=== PATIENT | male | born 1965 | race Two or more races ===

== ENCOUNTER 2024-11-21 18:56 | Emergency (ER) | payer MEDICAID, OTHER ==
[~2024-11-21] VITALS: Ht 167.6 cm; Wt 113.6 kg
--- NOTE | 2024-11-21 19:31 | ED.PDOC ---
HPI (NEURO) HPI Comments This is a 59-year-old homeless male with past medical history of CVA (8 years back, with no residual deficits), hypertension and dyslipidemia brought in by ambulance due to dizziness. Per patient, he felt dizziness while he was walking, which lasted for 1 minutes, then he sat for 10 minutes, and again got dizzy which prompted this visit. He also reports of nausea, blurry vision, headache, generalized weakness and abdominal pain. He denies shortness of breaths, chest pain, or any motor/sensory deficits. He reports of previous using methamphetamine, marijuana and smoking cigarettes. Chief Complaint: General Weakness Time Seen by MD: 19:00 Mode of Arrival: EMS Past Medical History Past Medical History (Other): CVA, hypertension and dyslipidemia Physical Exam General Appearance: No Apparent Distress, Normal HEENT: Normal ENT Inspection, Pharynx Normal, TMs Normal Neck: Full Range of Motion, Non-Tender, Normal, Normal Inspection Respiratory: Chest Non-Tender, Lungs Clear, No Accessory Muscle Use, No Respiratory Distress, Normal Breath Sounds Cardiovascular: No Edema, No JVD, No Murmur, No Gallop, Normal Peripheral Pulses, Regular Rate/Rhythm Breast Exam: Deferred Gastrointestinal: No Organomegaly, Non Tender, No Pulsatile Mass, Normal Bowel Sounds, Soft Genitalia: Deferred Pelvic: Deferred Rectal: Deferred Extremities: No calf tenderness, Normal capillary refill, Normal inspection, Normal range of motion, Non-tender, No pedal edema Neurologic: Alert, brand sales manager II-XII nml as Tested, No Motor Deficits, Normal Affect, Normal Mood, No Sensory Deficits Cerebellar Function: Normal Reflexes: Normal Skin: Dry, Normal Color, Warm Lymphatic: No Adenopathy Was a procedure done? Was a procedure done?: No Differential Diagnosis (SZ) Seizure: CVA/TIA CVA: Drug Overdose X-Ray, Labs, Meds, VS Vital Signs Date Time Temp Pulse Resp B/P (MAP) Pulse Ox O2 Delivery O2 Flow Rate FiO2 11/22/24 00:36 97.7 74 14 147/81 (103) 99 97.7 11/21/24 19:04 98.0 98 18 118/74 98 98.0 Lab Test 11/21/24 19:25 Range/Units White Blood Count 6.2 4.4-10.8 10^3/uL Red Blood Count 4.23 L 4.5-5.90 10^6/uL Hemoglobin 13.3 L 13.5-17.5 g/dL Hematocrit 38.7 L 41.0-53.0 % Mean Corpuscular Volume 91.4 80.0-100.0 fL Mean Corpuscular Hemoglobin 31.5 28.0-32.0 pg Mean Corpuscular Hemoglobin Concent 34.5 32.0-36.0 g/dL Red Cell Distribution Width 16.0 H 11.8-14.3 % Platelet Count 230 140-450 10^3/uL Mean Platelet Volume 7.2 6.9-10.8 fL Neutrophils (%) (Auto) 69.0 37.0-80.0 % Lymphocytes (%) (Auto) 15.8 10.0-50.0 % Monocytes (%) (Auto) 8.6 0.0-12.0 % Eosinophils (%) (Auto) 5.6 0.0-7.0 % Basophils (%) (Auto) 1.0 0.0-2.0 % Neutrophils # (Auto) 4.3 1.6-8.6 10 ^3/uL Lymphocytes # (Auto) 1.0 0.4-5.4 10 ^3/uL Monocytes # (Auto) 0.5 0-1.3 10 ^3/uL Eosinophils # (Auto) 0.3 0-0.8 10 ^3/uL Basophils # (Auto) 0.1 0-0.2 10 ^3/uL Nucleated Red Blood Cells 0.0 % D-Dimer, Quantitative 1.33 H 0.0-0.49 mg/L FEU Sodium Level 140 136-145 mmol/L Potassium Level 5.0 3.5-5.1 mmol/L Chloride Level 112 H 98-107 mmol/L Carbon Dioxide Level 17 L 20-31 mmol/L Anion Gap 11 5-15 Blood Urea Nitrogen 29 H 9-23 mg/dL Creatinine 1.93 H 0.700-1.30 mg/dL Glomerular Filtration Rate Calc 39 >90 mL/min BUN/Creatinine Ratio 15.0 10.0-20.0 Serum Glucose 107 H 74-106 mg/dL Calcium Level 8.5 L 8.7-10.4 mg/dL Total Bilirubin 0.7 0.2-1.0 mg/dL Aspartate Amino Transferase (AST) 20 13-40 U/L Alanine Aminotransferase (ALT) 16 7-40 U/L Alkaline Phosphatase 126 H 46-116 U/L Troponin I High Sensitivity 7 </=54 ng/L Total Protein 7.4 5.7-8.2 g/dL Albumin 3.9 3.2-4.8 g/dL Plasma/Serum Blood Alcohol 15.8 H <10 mg/dL Time of 1ST Reevaluation: 22:46 Reevaluation 1ST: Unchanged Patient Education/Counseling: Diagnosis, Treatment, Prognosis, Need For Follow Up Family Education/Counseling: No Family Present Comments Patient was brought by EMS due to presyncope, dizziness and blurry vision Patient was vitally within normal limits. Head CT scan showed, showed subacute finding, spoken with the radiologist, recommended follow up with CT scan. Patient was given IV normal saline, ondansetron, atorvastatin, aspirin CBC and CMP within normal limits Chest x-ray and EKG ordered Patient will be admitted in hospital for further management. And possible expert opinion Departure 1 Departure Time of Disposition: 22:47 Impression: Primary Impression: Recurrent strokes Additional Impression: Pre-syncope Disposition: 09 ADMITTED INPATIENT Admit to: Tele Condition: Guarded Critical Care Note Critical Care Time?: No Stability Stability form required: No Heart Score Heart Score: Heart Score Response (Comments) Value History N/A 0 EKG N/A 0 Age N/A 0 Risk Factors N/A 0 Troponin N/A 0 Total 0 AIDA SRIVASTAVA Nov 21, 2024 19:31
[2024-11-21 19:47] LABS: Hematocrit 38.7 % (41.0-53.0); Hemoglobin 13.3 g/dL (13.5-17.5); Mean Corpuscular Hemoglobin 31.5 pg (28.0-32.0); Mean Corpuscular Volume 91.4 fL (80.0-100.0); Nucleated Red Blood Cells % 0.0 %
[2024-11-21 19:57] LABS: Alanine Aminotransferase 16 U/L (7-40); Albumin 3.9 g/dL (3.2-4.8); Anion Gap 11 (5-15); BUN/Creatinine Ratio 15.0 (10.0-20.0); Bilirubin, Total 0.7 mg/dL (0.2-1.0); Potassium 5.0 mmol/L (3.5-5.1); Sodium 140 mmol/L (136-145); Total Protein 7.4 g/dL (5.7-8.2)
[2024-11-21 20:01] LABS: Alkaline Phosphatase 126 U/L (46-116); Blood Urea Nitrogen 29 mg/dL (9-23); Calcium 8.5 mg/dL (8.7-10.4); Carbon Dioxide 17 mmol/L (20-31); Chloride 112 mmol/L (98-107); Glucose 107 mg/dL (74-106)
--- NOTE | 2024-11-21 20:01 | DVH ---
EXAM: CT HEAD WITHOUT CONTRAST INDICATION: pre-syncope TECHNIQUE: CT of the head without intravenous contrast. Radiation Dose Information: CT Dose: CTDI volume is 54.2 mGy. Dose-length product is 868.93 mGy*cm The dose indicators for CT are the volume Computed Tomography (CT) Dose Index (CTDIvol) and the Dose Length Product (DLP), and are measured in units of mGy and mGy-cm, respectively. These indicators are not patient dose, but values generated from the CT scanner acquisition factors. The report includes radiation exposure data for exposures received during this examination. COMPARISON: None FINDINGS: There is no evidence of acute intracranial hemorrhage, extra-axial collection, mass effect, midline s hift, herniation or hydrocephalus. Area decreased attenuation deep white matter right posterior parietal lobe. There are no prior studie s for comparison can not exclude subacute infarct. Audible and ridge images 29- 35 series 2. The ventricles, sulci and cisterns are age appropriate. The pool-white differentiation is intact. Patchy periventricular and subcortical white matter hypoattenuation is nonspecific but may be related to small vessel ischemic disease. The visualized paranasal sinuses and mastoid air cells are clear. The surrounding soft tissues and osseous structures are unremarkable. IMPRESSION: 1. Area decreased attenuation deep white matter right posterior parietal lobe. 2. There are no prior studies for comparison can not exclude subacute infarct. Increased tissue densi ty in the right in the region of the basal ganglion and above the insula may represent hemorrhage con language path follow-up study. Series 2 images 29- 34 3. MRI brain with diffusion-weighted imaging can be obtained for further evaluation. CRITICAL FINDINGS Critical Result: POSSIBLE SUBACUTE INFARCT RIGHT POSTERIOR PARIETAL LOBE WITH QUESTIONABLE ACUTE HEMO RRHAGE AROUND THE POSTERIOR HORN OF THE RIGHT LATERAL VENTRICLE RECOMMEND FOLLOW-UP. (Series 2 images 29- 34.) Findings discussed with Dr Klein, at 11/21/2024 07:53 PM, and acknowledged receipt and understandi ng of the findings. ..
--- NOTE | 2024-11-21 20:04 | DVH ---
CHEST RADIOGRAPH Indication: pnaumonia Technique: Single frontal view of the chest was obtained Comparison: XY CHEST PORTABLE on DOS: 06/22/22, CXR2 on DOS: 11/10/21, CHEST TWO VIEWS ROUTINE on DOS: FINDINGS: Lines and Tubes: Dual-chamber pacemaker in place with pulse generator over the left chest. Lungs: No focal consolidation. Pleura: No effusion. No pneumothorax. Cardiomediastinal contours: Unremarkable Bones: No acute osseous abnormality. IMPRESSION: 1. No acute cardiopulmonary disease. 2. No prior studies for comparison.
--- NOTE | 2024-11-21 20:04 | DVH ---
CLINICAL HISTORY: edema TECHNIQUE: Color and duplex doppler imaging of the bilateral lower extremity veins was performed. Ves richar compression if possible was also performed. WID: COMPARISON: US BILAT LOWER DVT on DOS: 06/22/22 FINDINGS: Right Lower Extremity: Right common femoral vein: Normal compressibility and flow. Right femoral vein: Normal compressibility and flow. Right popliteal vein: Normal compressibility and flow. Proximal calf veins are normally compressible. Left Lower Extremity: Left common femoral vein: Normal compressibility and flow. Left femoral vein: Normal compressibility and flow. Left popliteal vein: Normal compressibility and flow. Proximal calf veins are normally compressible. Subcutaneous edema in the bilateral calves. IMPRESSION: 1. NO SONOGRAPHIC EVIDENCE FOR DEEP VENOUS THROMBOSIS IN THE BILATERAL LOWER EXTREMITY VEINS. 2. Subcutaneous edema in the bilateral calves.
--- NOTE | 2024-11-22 00:29 | DVH ---
CLINICAL HISTORY: headache TECHNIQUE: Helical imaging carried out from skull base to vertex without intravenous contrast. This e xam was performed according to our departmental dose optimization program. Up-to-date CT equipment an d radiation dose reduction techniques are utilized as appropriate. CTDIVol: 60.84 mGy DLP: 1198.82 mGy-cm WID: COMPARISON: CT HEAD WITHOUT CONTRAST on DOS: 11/21/24 FINDINGS: Generalized cerebral volume loss with concordant prominence of the subarachnoid spaces and ventricles . There is a chronic infarct in the right parietal lobe with associated ex vacuo dilatation of the la teral ventricle in the right temporal horn and atrium. There is mild patchy low attenuation in the ce rebral white matter consistent with nonspecific white matter disease. There is a small chronic infarc t in the right thalamus and small chronic lacunar infarcts in the bilateral basal ganglia. There is an area of increased density within the mid to posterior right external capsule region. There is no midline shift or mass effect. The pool white matter interfaces are maintained. The basal cisterns are patent. The mastoid air cells and visualized paranasal sinuses are well-aerated. Multi ple periapical lucencies and dental caries in the visualized maxillary teeth. IMPRESSION: 1. Chronic appearing infarct in the right parietal lobe. 2. Unchanged linear hyperdensity in the mid to distal right external capsule region which could refle ct gliosis related to chronic infarct less likely small subarachnoid hemorrhage. Short-term follow-u p could be obtained in 1-3 days to re-evaluate this finding. 3. Generalized cerebral volume loss and chronic microvascular ischemic change. 4. Small chronic infarct in the right thalamus and small chronic lacunar infarcts in the bilateral ba loraine ganglia.
[2024-11-22] MEDS ORDERED: SODIUM CHLORIDE 0.9% 500 ML IV ONE (02:15)
[2024-11-22] MEDS ORDERED: FOLIC ACID 1 MG in D5W 5% 50 ML INJ ONE (02:15)
[2024-11-22] MEDS ORDERED: ATORVASTATIN 20 MG TAB PO ONE (02:15)
[2024-11-22] MEDS ORDERED: ONDANSETRON HCL 4 MG/2 ML VIAL IV ONE (02:15)
[2024-11-22] MEDS ORDERED: levETIRAcetam 500 mg/100ml 100 ML IV ONE (02:15)
[2024-11-22] MEDS ORDERED: THIAMINE 100mg/ml INJ (200mg/2ml VIAL) IV ONE (02:15)
[2024-11-22 04:45] VITALS: BP 117/66; PULSE 69; RESP 16; TEMP 97.7; O2SAT 99
== END 2024-11-22 05:02 | disposition short-term general hospital (02) ==
LOC: EDBD 18:56 → ER 18:56
DX: I63.89 Other cerebral infarction (principal); R55 Syncope and collapse; I10 Essential (primary) hypertension; E78.5 Hyperlipidemia, unspecified; Z59.00 Homelessness unspecified; Z86.73 Personal history of transient ischemic attack (TIA), and cerebral infarction without residual deficits; Z87.891 Personal history of nicotine dependence
CPT/HCPCS: 36415; 70450; 71045; 80053; 80320; 84484; 85025; 85379; 93970

== ENCOUNTER 2024-12-07 03:58 | Inpatient (IN) | payer MEDICAID ==
[~2024-12-07] VITALS: Ht 172.7 cm; Wt 114.8 kg
[~2024-12-07 03:58] MED LIST: AMLO1TAB22 PO; ATOR10TA52 PO; NIFE20CA13 PO
[2024-12-07] MEDS ORDERED: ACET500T58 PO (04:31)
--- NOTE | 2024-12-07 04:33 | ED.PDOC ---
Musculoskeletal HPI Comments 59-year-old male presents to ER with bilateral lower extremity complaint x1 week. Patient presents via EMS, reporting that he has been pain and numbness to bilateral feet x1 week that got worse x1 day when he is walking to a convenience store. He rates his current pain a 10/10 to bilateral feet with radiation upwards to bilateral legs. Denies use of medications for current symptoms and presents to ER in no distress vitals stable. Denies fever, skin changes, shortness breath, calf pain, chest pain, injury, extremity weakness or any further symptoms/complaints Chief Complaint: Lower Extremity Time Seen by MD: 04:12 Primary Care Provider: UNKNOWN Reviewed Notes: Nurses Notes, Medications, Allergies Allergies: Coded Allergies: NO KNOWN ALLERGIES (Unverified , 11/22/24) Home Meds Reported Medications Atorvastatin Calcium (ATORVASTATIN CALCIUM) 10 Mg Tab, 1 TAB PO HS, #30 TAB 5 Refills 12/07/24 Nifedipine (Nifedipine) 20 Mg Cap, 1 CAP PO DAILY 12/07/24 Discontinued Scripts Acetaminophen (Acetaminophen) 500 Mg Tab, 500 MG PO Q4HPRN, #30 TAB 0 Refills Prov:OFELIA GAO 12/07/24 Information Source: Patient Mode of Arrival: EMS Past Medical History PAST MEDICAL HISTORY: CVA ("8 YEARS AGO"), HTN Social History Smoker: Non-Smoker Alcohol: Denies ETOH Use Drugs: Denies Drug Use Lives In: Homeless Constitutional: denies: chills, diaphoresis, fatigue, fever, malaise, sweats, weakness, others EENTM: denies: blurred vision, double vision, ear bleeding, ear discharge, ear drainage, ear pain, ear ringing, eye pain, eye redness, hearing loss, mouth pain, mouth swelling, nasal discharge, nose bleeding, nose congestion, nose pain, photophobia, tearing, throat pain, throat swelling, voice changes, others Respiratory: denies: cough, hemoptysis, orthopnea, SOB at rest, shortness of breath, SOB with excertion, stridor, wheezing, others Cardiovascular: denies: chest pain, dizzy spells, diaphoresis, Dyspnea on exertion, edema, irregular heart beat, left arm pain, lightheadedness, palpitations, PND, syncope, others Gastrointestinal: denies: abdomen distended, abdominal pain, blood streaked bowels, constipated, diarrhea, dysphagia, difficulty swallowing, hematemesis, melena, nausea, poor appetite, poor fluid intake, rectal bleeding, rectal pain, vomiting, others Genitourinary: denies: burning, dysuria, flank pain, frequency, hematuria, incontinence, penile discharge, penile sore, pain, testicle pain, testicle swelling, urgency, others Neurological: reports: others (As stated in HPI) Musculoskeletal: reports: others (As stated in HPI) Integumetry: denies: bruises, change in color, change in hair/nails, dryness, laceration, lesions, lumps, rash, wounds, others Allergic/Immunocompromised: denies: Difficulty Healing, Frequent Infections, Hives, Itching, others Hematologic/Lymphatic: denies: anemia, blood clots, easy bleeding, easy bruising, swollen glands, others Endocrine: denies: excessive hunger, excessive sweating, excessive thirst, excessive urination, flushing, intolerance to cold, intolerance to heat, unexplained weight gain, unexplained weight loss, others Psychiatric: denies: anxiety, bipolar disorder, depression, hopeless, panic disorder, schizophrenia, sleepless, suicidal, others Physical Exam General Appearance: No Apparent Distress HEENT: PERRL/EOMI Neck: Full Range of Motion, Non-Tender, Normal Respiratory: Chest Non-Tender, Lungs Clear, No Accessory Muscle Use, No Respiratory Distress, Normal Breath Sounds Cardiovascular: No Murmur, No Gallop, Regular Rate/Rhythm Breast Exam: Deferred Gastrointestinal: NOT DONE Genitalia: Deferred Pelvic: Deferred Rectal: Deferred Extremities: No calf tenderness, Normal capillary refill, Normal range of motion, No pedal edema Musculoskeletal : Extremity Location: Foot (Slight TTP diffuse to joints on bilateral feet. No deformity/skin changes noted. Pulses intact. Steady gait appreciated) Neurologic: Alert, No Motor Deficits, Normal Affect, Normal Mood, No Sensory Deficits Cerebellar Function: Normal Reflexes: Normal Skin: Dry, Normal Color, Warm Peripheral Pulses: 2+ dorsalis pedis (R), 2+ dorsalis pedis (L), 2+ Radial (R), 2+ Radial (L), 2+ Brachial (R), 2+ Brachial (L) Lymphatic: No Adenopathy Was a procedure done? Was a procedure done?: No Sedation Sedation?: No Differential Diagnosis EXT Differential Diagnosis: Cellulitis, Fracture, Dislocation, Neurovascular injury X-Ray, Labs, Meds, VS Vital Signs Date Time Temp Pulse Resp B/P (MAP) Pulse Ox O2 Delivery O2 Flow Rate FiO2 12/07/24 04:05 98.1 78 18 116/69 97 98.1 Lab Test 12/07/24 04:48 12/07/24 00:00 Range/Units White Blood Count 8.1 4.4-10.8 10^3/uL Red Blood Count 4.80 4.5-5.90 10^6/uL Hemoglobin 15.2 13.5-17.5 g/dL Hematocrit 44.4 41.0-53.0 % Mean Corpuscular Volume 92.6 80.0-100.0 fL Mean Corpuscular Hemoglobin 31.7 28.0-32.0 pg Mean Corpuscular Hemoglobin Concent 34.3 32.0-36.0 g/dL Red Cell Distribution Width 15.8 H 11.8-14.3 % Platelet Count 288 140-450 10^3/uL Mean Platelet Volume 7.3 6.9-10.8 fL Neutrophils (%) (Auto) 60.5 37.0-80.0 % Lymphocytes (%) (Auto) 24.7 10.0-50.0 % Monocytes (%) (Auto) 9.5 0.0-12.0 % Eosinophils (%) (Auto) 3.5 0.0-7.0 % Basophils (%) (Auto) 1.8 0.0-2.0 % Neutrophils # (Auto) 4.9 1.6-8.6 10 ^3/uL Lymphocytes # (Auto) 2.0 0.4-5.4 10 ^3/uL Monocytes # (Auto) 0.8 0-1.3 10 ^3/uL Eosinophils # (Auto) 0.3 0-0.8 10 ^3/uL Basophils # (Auto) 0.1 0-0.2 10 ^3/uL Nucleated Red Blood Cells 0.1 % Sodium Level 138 136-145 mmol/L Potassium Level 4.3 3.5-5.1 mmol/L Chloride Level 104 98-107 mmol/L Carbon Dioxide Level 21 20-31 mmol/L Anion Gap 13 5-15 Blood Urea Nitrogen 22 9-23 mg/dL Creatinine 2.81 H 0.700-1.30 mg/dL Glomerular Filtration Rate Calc 25 >90 mL/min BUN/Creatinine Ratio 7.8 L 10.0-20.0 Serum Glucose 81 74-106 mg/dL Calcium Level 9.1 8.7-10.4 mg/dL Plasma/Serum Blood Alcohol 10.0 <10 mg/dL Urine Creatinine Pending Urine Protein/Creatinine Ratio Pending Urine Total Protein Pending Current Medications Medications (Trade) Dose Ordered Sig/Wai Route Start Time Stop Time Status Last Admin Acetaminophen (Tylenol Tablet) 650 mg ONCE ONCE PO 12/07/24 04:30 12/07/24 04:31 DC 12/07/24 04:38 Sodium Chloride 1,000 ml @ 1,000 mls/hr Q1H ONCE IV 12/07/24 05:45 12/07/24 06:44 DC 12/07/24 06:21 Acetaminophen/ Hydrocodone Bitart ([place] 5/325MG Tab) 1 tab ONCE ONCE PO 12/07/24 05:45 12/07/24 05:46 DC 12/07/24 06:26 CBC reviewed without any significant abnormalities BMP creatinine 2.81, GFR 25 Tylenol 650 mg p.o. ordered Urinalysis ordered Hep-lock IV ordered NS 1 liter IV ordered [place] 5/325 mg p.o. ordered Previous chart visit reviewed Patients is homeless with poor follow-up and labs reveal increased creatinine levels and decreased GFR from previous ER visit on 11/21/24 Patient admitted to hospitalist for need for nephrology consult and pain management Time of 1ST Reevaluation: 04:14 Reevaluation 1ST: N/A Patient Education/Counseling: Diagnosis, Treatment, Prognosis, Need For Follow Up Family Education/Counseling: No Family Present Departure 1 Departure Time of Disposition: 04:30 Impression: Primary Impression: Renal failure, acute Qualified Codes: N17.9 - Acute kidney failure, unspecified Additional Impressions: Neuropathy involving both lower extremities Arthralgia of both feet Disposition: ADMITTED INPATIENT Condition: Stable Critical Care Note Critical Care Time?: No Stability Stability form required: No Heart Score Heart Score: Heart Score Response (Comments) Value History N/A 0 EKG N/A 0 Age N/A 0 Risk Factors N/A 0 Troponin N/A 0 Total 0 OFELIA GAO Dec 07, 2024 04:32
[2024-12-07] MEDS: ACETAMINOPHEN 325 MG TAB PO ONE (04:38)
[2024-12-07 05:07] LABS: Hematocrit 44.4 % (41.0-53.0); Hemoglobin 15.2 g/dL (13.5-17.5); Mean Corpuscular Hemoglobin 31.7 pg (28.0-32.0); Mean Corpuscular Volume 92.6 fL (80.0-100.0); Nucleated Red Blood Cells % 0.1 %
[2024-12-07 05:19] LABS: Chloride 104 mmol/L (98-107); Potassium 4.3 mmol/L (3.5-5.1); Sodium 138 mmol/L (136-145)
[2024-12-07 05:20] LABS: Anion Gap 13 (5-15); Calcium 9.1 mg/dL (8.7-10.4); Carbon Dioxide 21 mmol/L (20-31)
[2024-12-07 05:25] LABS: BUN/Creatinine Ratio 7.8 (10.0-20.0); Blood Urea Nitrogen 22 mg/dL (9-23); Glucose 81 mg/dL (74-106)
[2024-12-07] MEDS: SODIUM CHLORIDE 0.9% 1,000 ML IV ONE (06:21)
[2024-12-07] MEDS: HYDROcodone-ACET 5/325MG TAB PO ONE (06:26)
[2024-12-07] MEDS ORDERED: ONDANSETRON HCL 4 MG/2 ML VIAL IV PRN (07:45)
--- NOTE | 2024-12-07 08:13 | DVHHP2 ---
History of Present Illness Reason for Visit: Bilateral foot pain History of Present Illness Gilbert Romo is a 59-year-old male with past medical history of hypertension and hyperlipidemia, who came to the hospital for bilateral foot and leg pain. Patient states he was recently discharged from [facility] for similar complaint. He states he has had pain in his feet and legs for 2 weeks. He states he is having a hard time walking due to the pain. Cardiovascular: HTN, hyperipidemia Past Surgical History: None Smoke: No ALCOHOL: heavy Drugs: Other (methamphetamine) Review of Systems Constitutional: No: Fever, Chills, Sweats, Weakness, Malaise, Other Eyes: No: Pain, Vision change, Conjunctivae inflammation, Eyelid inflammation, Other, Redness ENT: No: Ear pain, Ear discharge, Nose pain, Nose discharge, Nose congestion, Mouth pain, Mouth swelling, Throat pain, Throat swelling, Other Respiratory: No: Cough, Dry, Shortness of breath, SOB with excertion, Wheezing, Hemoptysis, Pleuritic Pain, Sputum, Wheezing, Other Cardiovascular: No: Chest Pain, Palpitations, Orthopnea, Paroxysmal Noc. Dyspnea, Edema, Lt Headedness, Other Gastrointestinal: No: Nausea, Vomiting, Abdominal Pain, Diarrhea, Constipation, Melena, Hematochezia, Other Genitourinary: No Dysuria, No Frequency, No Incontinence, No Hematuria, No Retention, No Other Musculoskeletal: leg pain (bilateral), foot pain (bilateral); No: other, neck pain, shoulder pain, arm pain, back pain, hand pain Skin: No: Rash, Lesions, Jaundice, Bruising, Other Neurological: No: Weakness, Numbness, Incoordination, Change in speech, Confusion, Seizures, Other Allergies: Coded Allergies: NO KNOWN ALLERGIES (Unverified , 11/22/24) Medications Current Medications Medications Dose Ordered Sig/Wai Route Start Time Stop Time Status Last Admin Dose Admin Acetaminophen/ Hydrocodone Bitart 1 tab Q4HP PRN PO 12/07/24 07:45 UNV Ondansetron HCl 4 mg Q4HP PRN IV 12/07/24 07:45 UNV Docusate Sodium 100 mg BIDPRN PRN PO 12/07/24 07:45 UNV Acetaminophen 650 mg Q6HP PRN PO 12/07/24 07:45 UNV Exam Vital Signs Vital Signs Date Time Temp Pulse Resp B/P (MAP) Pulse Ox O2 Delivery O2 Flow Rate FiO2 12/07/24 04:05 98.1 78 18 116/69 97 98.1 General Appearance: Alert, Oriented X3, Cooperative, moderate distress HEENT: Atraumatic, PERRLA, Mucous membr. moist/pink Respiratory: Clear to auscultation, Normal air movement Cardiovascular: Regular rate, Normal S1, Normal S2, No murmurs Abdominal: Normal bowel sounds, Soft, No tenderness, No hepatospenomegaly Extremities: No clubbing, No cyanosis, No edema Neuro: Normal speech Psych/Mental Status: Mental status NL Labs/Xrays Labs Test 12/07/24 04:48 Range/Units White Blood Count 8.1 4.4-10.8 10^3/uL Red Blood Count 4.80 4.5-5.90 10^6/uL Hemoglobin 15.2 13.5-17.5 g/dL Hematocrit 44.4 41.0-53.0 % Mean Corpuscular Volume 92.6 80.0-100.0 fL Mean Corpuscular Hemoglobin 31.7 28.0-32.0 pg Mean Corpuscular Hemoglobin Concent 34.3 32.0-36.0 g/dL Red Cell Distribution Width 15.8 H 11.8-14.3 % Platelet Count 288 140-450 10^3/uL Mean Platelet Volume 7.3 6.9-10.8 fL Neutrophils (%) (Auto) 60.5 37.0-80.0 % Lymphocytes (%) (Auto) 24.7 10.0-50.0 % Monocytes (%) (Auto) 9.5 0.0-12.0 % Eosinophils (%) (Auto) 3.5 0.0-7.0 % Basophils (%) (Auto) 1.8 0.0-2.0 % Neutrophils # (Auto) 4.9 1.6-8.6 10 ^3/uL Lymphocytes # (Auto) 2.0 0.4-5.4 10 ^3/uL Monocytes # (Auto) 0.8 0-1.3 10 ^3/uL Eosinophils # (Auto) 0.3 0-0.8 10 ^3/uL Basophils # (Auto) 0.1 0-0.2 10 ^3/uL Nucleated Red Blood Cells 0.1 % Sodium Level 138 136-145 mmol/L Potassium Level 4.3 3.5-5.1 mmol/L Chloride Level 104 98-107 mmol/L Carbon Dioxide Level 21 20-31 mmol/L Anion Gap 13 5-15 Blood Urea Nitrogen 22 9-23 mg/dL Creatinine 2.81 H 0.700-1.30 mg/dL Glomerular Filtration Rate Calc 25 >90 mL/min BUN/Creatinine Ratio 7.8 L 10.0-20.0 Serum Glucose 81 74-106 mg/dL Calcium Level 9.1 8.7-10.4 mg/dL CHEST RADIOGRAPH FINDINGS: Lines and Tubes: Dual lead left-sided pacemaker Lungs: No focal consolidation. Pleura: No effusion. No pneumothorax. Cardiomediastinal contours: Unremarkable Bones: No acute osseous abnormality. IMPRESSION: No acute cardiopulmonary disease. SEPSIS Sepsis Screen Date sepsis recognized/suspect: Dec 07, 2024 Time Sepsis recognized/suspect: 407 Recent Procedure: No On Antibiotic Therapy: No Respiratory Rate >20: No Heart Rate >90: No Temp<36 C (96.8 F) or >38.3 C: No SBP <90 or MAP <65 mmHG: No New Acute Mental Status Change: No Is the patient on CPAP, BIPAP,: No Physician Orders Heplock Iv (12/07/24 ) Admit (12/07/24 07:43) Code Status (12/07/24 07:43) 2 Gm Sodium Diet (12/07/24 Breakfast) Hydrocodone-Acet 5/325mg Tab ([place] 5/32 (12/07/24 07:45) Ondansetron Hcl (Zofran) (12/07/24 07:45) Docusate Sodium Capsule (Colace Capsule) (12/07/24 07:45) Complete Blood Count (12/08/24 04:00) Comprehensive Metabolic Panel (12/08/24 04:00) Condition: Serious (12/07/24 07:43) Acetaminophen Tablet (Tylenol Tablet) (12/07/24 07:45) *Dr. Tristin Andrea [facility] (12/07/24 07:45) Drug Screen (12/07/24 07:48) Urine Dip (12/07/24 ) Blood Alcohol (12/07/24 07:48) Folic Acid Tablet (12/07/24 10:00) Multiple Vitamin W Mineral Tab (Mvi W/ M (12/07/24 10:00) Thiamine Tab (12/07/24 10:00) Vital Signs Date Time Temp Pulse Resp B/P (MAP) Pulse Ox O2 Delivery O2 Flow Rate FiO2 12/07/24 04:05 98.1 78 18 116/69 97 98.1 Laboratory Tests Test 12/07/24 04:48 White Blood Count 8.1 10^3/uL (4.4-10.8) Medications Medications Dose Ordered Sig/Wai Route Start Time Stop Time Status Last Admin Dose Admin Acetaminophen 650 mg ONCE ONCE PO 12/07/24 04:30 12/07/24 04:31 DC 12/07/24 04:38 650 MG Acetaminophen/ Hydrocodone Bitart 1 tab ONCE ONCE PO 12/07/24 05:45 12/07/24 05:46 DC 12/07/24 06:26 1 TAB Sodium Chloride 1,000 ml @ 1,000 mls/hr Q1H ONCE IV 12/07/24 05:45 12/07/24 06:44 DC 12/07/24 06:21 1,000 MLS/HR Assessment/Plan Assessment/Plan Assessment: Renal failure, acute, Hypertension, Methamphetamine abuse, ETOH dependance, Plan: Admit to Med-Surg, Nephrology consult, baseline kidney function unknown, IV hydration, Avoid nephrotoxic medications, PO supplements for ETOH withdrawal, Home medications reconciled, Plan discussed with: Patient My Orders Orders - RAYMOND RAMIREZ [employer] Procedure Category Date Status Time Admit ADMIT 12/07/24 Transmitted 07:43 Code Status CODE 12/07/24 Transmitted 07:43 2 Gm Sodium Diet DIET 12/07/24 Transmitted Breakfast Hydrocodone-Acet PHA 12/07/24 Logged 5/325mg Tab ([place] 07:45 Ondansetron Hcl PHA 12/07/24 Logged (Zofran) 07:45 Docusate Sodium PHA 12/07/24 Logged Capsule (Colace 07:45 Complete Blood Count LAB 12/08/24 Verified 04:00 Comprehensive LAB 12/08/24 Verified Metabolic Panel 04:00 Condition: Serious PALMA 12/07/24 In Process 07:43 Acetaminophen Tablet PHA 12/07/24 Logged (Tylenol Tablet) 07:45 *[facility]. [facility] CONS 12/07/24 Transmitted -[place] 07:45 Drug Screen LAB 12/07/24 Transmitted 07:48 Urine Dip ED NURSING 12/07/24 Transmitted Blood Alcohol LAB 12/07/24 Transmitted 07:48 Folic Acid Tablet PHA 12/07/24 Verified 10:00 Multiple Vitamin W PHA 12/07/24 Verified Mineral Tab (Mvi W/ M 10:00 Thiamine Tab PHA 12/07/24 Verified 10:00 Date of Service: Dec 07, 2024 Billing Provider: RAYMOND RAMIREZ Common Visit Codes: [id number] INP/OBS CARE (MOD) RAYMOND RAMIREZ Dec 07, 2024 08:13
--- NOTE | 2024-12-07 09:26 | DVH ---
CHEST RADIOGRAPH Indication: SOB Technique: Single frontal view of the chest was obtained Comparison: XR CHEST 1 VIEW on DOS: 11/29/24, XY CHEST XRAY 1 VIEW on DOS: 11/21/24, XY CHEST PORTABLE o n DOS: 06/22/22, CXR2 on DOS: 11/10/21, CHEST TWO VIEWS ROUTINE on DOS: 11/10/21 FINDINGS: Lines and Tubes: Dual lead left-sided pacemaker Lungs: No focal consolidation. Pleura: No effusion. No pneumothorax. Cardiomediastinal contours: Unremarkable Bones: No acute osseous abnormality. IMPRESSION: No acute cardiopulmonary disease.
[2024-12-07] MEDS: THIAMINE HCL 100 MG TAB PO SCH (10:54)
[2024-12-07] MEDS: FOLIC ACID 1 MG TAB PO SCH (10:54)
[2024-12-07] MEDS: MULTIPLE VITAMINS W/ MINERALS TAB PO SCH (10:54)
[2024-12-07] MEDS: ALBUMIN 25% 100 ML IV ONE (11:45)
--- NOTE | 2024-12-07 12:04 | DVH ---
INDICATION: SHANNAN TECHNIQUE: Multiple real-time sonographic images of the kidneys and bladder were obtained. COMPARISON: US ABDOMEN LIMITED on DOS: 06/26/22, US ABDOMEN LIMITED on DOS: 06/25/22, KIDUS on DOS: 10/16 11/05, KIDNEY on DOS: 11/11/21, BI LOWER DVT on DOS: 10/31/21 FINDINGS: The right kidney measures 9 cm in length, which is normal in size. There is normal echogeni city of the right kidney. No hydronephrosis. 6 cm right perinephric fluid noted. The left kidney measures 8 cm in length, which is normal in size. There is normal echogenicity of the left kidney. No hydronephrosis. No large intraluminal masses are seen in the bladder. IMPRESSION: 6 cm right perinephric fluid noted.
[2024-12-07 13:00] VITALS: BP 104/59; PULSE 66; RESP 16; TEMP 98; O2SAT 96
[2024-12-07 13:25] LABS: Alanine Aminotransferase 13 U/L (7-40); Albumin 4.0 g/dL (3.2-4.8); Anion Gap 12 (5-15); BUN/Creatinine Ratio 8.7 (10.0-20.0); Bilirubin, Total 0.9 mg/dL (0.2-1.0); Blood Urea Nitrogen 23 mg/dL (9-23); Calcium 8.8 mg/dL (8.7-10.4); Carbon Dioxide 20 mmol/L (20-31); Chloride 106 mmol/L (98-107); Potassium 4.6 mmol/L (3.5-5.1); Sodium 138 mmol/L (136-145); Total Protein 7.4 g/dL (5.7-8.2)
[2024-12-07 13:26] LABS: Alkaline Phosphatase 123 U/L (46-116); Glucose 107 mg/dL (74-106)
--- NOTE | 2024-12-07 14:30 | DVHCONRES ---
Date Seen: Dec 07, 2024 Resident Creating Document: BARTOLO BATISTA RESIDENT Referring Physician SHONDA Barton Reason for Consultation Acute on chronic kidney failure History of Present Illness This is a 59 years old male with past medical history of hypertension, hyperlipidemia, status post pacemaker presented to the ED with a chief complaint of bilateral foot and leg pain. Patient states he was recently discharged from [facility] for similar complaint. He states he has had pain in his feet and legs for 2 weeks. He denies fever, chills, shortness of breath, chest pain, dizziness, diaphoresis, abdominal pain, nausea, vomiting, hematuria, dysur ia or any altered bowel habit. The patient was seen and examined on the bedside. He is alert oriented x3. Complaint of bilateral foot pain, no other active complaint. Past Medical History Hypertension, hyperlipidemia Past Surgical History Status post pacemaker Family History: Diabetes mellitus G8 MOTHER Allergies: Coded Allergies: NO KNOWN ALLERGIES (Unverified , 11/22/24) Home Meds Reported Medications Atorvastatin Calcium (ATORVASTATIN CALCIUM) 10 Mg Tab, 1 TAB PO HS, #30 TAB 5 Refills 12/07/24 Nifedipine (Nifedipine) 20 Mg Cap, 1 CAP PO DAILY 12/07/24 Discontinued Scripts Acetaminophen (Acetaminophen) 500 Mg Tab, 500 MG PO Q4HPRN, #30 TAB 0 Refills Prov:OFELIA GAO 12/07/24 Current Medications Current Medications Medications (Trade) Dose Ordered Sig/Wai Route PRN Reason Start Time Stop Time Status Last Admin Acetaminophen/ Hydrocodone Bitart ([place] 5/325MG Tab) 1 tab Q4HP PRN PO MODERATE PAIN (4-6 PAIN SCALE) 12/07/24 07:45 Ondansetron HCl (Zofran) 4 mg Q4HP PRN IV NAUSEA / VOMITING 12/07/24 07:45 Docusate Sodium (Colace Capsule) 100 mg BIDPRN PRN PO FOR CONSTIPATION 12/07/24 07:45 Acetaminophen (Tylenol Tablet) 650 mg Q6HP PRN PO PAIN SCALE 1-3 OR TEMP>100.4 12/07/24 07:45 Folic Acid 1 mg DAILY PO 12/07/24 10:00 12/07/24 10:54 Multivitamins/ Minerals (Mvi W/ Minerals Tablet) 1 tab DAILY PO 12/07/24 10:00 12/07/24 10:54 Thiamine HCl 100 mg DAILY PO 12/07/24 10:00 12/07/24 10:54 Review of Systems Constitutional: No: Fever, Chills, Sweats, Weakness, Malaise, Other Eyes: No: Pain, Vision change, Conjunctivae inflammation, Eyelid inflammation, Other, Redness ENT: No: Ear pain, Ear discharge, Nose pain, Nose discharge, Nose congestion, Mouth pain, Mouth swelling, Throat pain, Throat swelling, Other Respiratory: No: shortness of breath, Cough, Dry,Wheezing, Hemoptysis, Pleuritic Pain, Sputum, Wheezing, Other Cardiovascular: No: Chest Pain, Palpitations, Orthopnea, Paroxysmal Noc. Dyspnea, Edema, Lt Headedness, Other Gastrointestinal: No: Nausea, Vomiting, Abdominal Pain, Diarrhea, Constipation, Melena, Hematochezia, Other Musculoskeletal: leg pain, foot pain, No neck pain, shoulder pain, arm pain, back pain, hand pain. Neurological:; No: Weakness, Numbness, Incoordination, Change in speech, Confusion, Seizures Vital Signs Vital Signs Date Time Temp Pulse Resp B/P (MAP) Pulse Ox O2 Delivery O2 Flow Rate FiO2 12/07/24 13:00 98.0 66 16 104/59 (74) 96 98.0 12/07/24 11:03 Room Air Physical Exam Physical examination: General Appearance: Alert, Oriented X3, Cooperative, No acute distress HEENT: Atraumatic, PERRLA, EOMI, Mucous membrane moist/pink Respiratory: Clear to auscultation, Normal air movement Cardiovascular: Regular rate, Normal S1, Normal S2, No murmurs, no chest wall tenderness Abdominal: Normal bowel sounds, Soft, No tenderness, No hepatospenomegaly, No masses Extremities: No clubbing, No cyanosis, No edema, Normal pulses, No tenderness/swelling Skin: No rashes, No breakdown, No significant lesion Neuro: Normal gait, Normal speech, Strength at 5/5 X4 ext, Normal tone, Sensation intact, Cranial nerves 3-12 NL, Reflexes 2+ Psych/Mental Status: Mental status NL, Mood NL Labs/Diagnostic Data Labs Test 12/07/24 12:53 12/07/24 04:48 Range/Units Sodium Level 138 136-145 mmol/L Potassium Level 4.6 3.5-5.1 mmol/L Chloride Level 106 98-107 mmol/L Carbon Dioxide Level 20 20-31 mmol/L Anion Gap 12 5-15 Blood Urea Nitrogen 23 9-23 mg/dL Creatinine 2.64 H 0.700-1.30 mg/dL Glomerular Filtration Rate Calc 27 >90 mL/min BUN/Creatinine Ratio 8.7 L 10.0-20.0 Serum Glucose 107 H 74-106 mg/dL Calcium Level 8.8 8.7-10.4 mg/dL Total Bilirubin 0.9 0.2-1.0 mg/dL Aspartate Amino Transferase (AST) 18 13-40 U/L Alanine Aminotransferase (ALT) 13 7-40 U/L Alkaline Phosphatase 123 H 46-116 U/L Total Protein 7.4 5.7-8.2 g/dL Albumin 4.0 3.2-4.8 g/dL White Blood Count 8.1 4.4-10.8 10^3/uL Red Blood Count 4.80 4.5-5.90 10^6/uL Hemoglobin 15.2 13.5-17.5 g/dL Hematocrit 44.4 41.0-53.0 % Mean Corpuscular Volume 92.6 80.0-100.0 fL Mean Corpuscular Hemoglobin 31.7 28.0-32.0 pg Mean Corpuscular Hemoglobin Concent 34.3 32.0-36.0 g/dL Red Cell Distribution Width 15.8 H 11.8-14.3 % Platelet Count 288 140-450 10^3/uL Mean Platelet Volume 7.3 6.9-10.8 fL Neutrophils (%) (Auto) 60.5 37.0-80.0 % Lymphocytes (%) (Auto) 24.7 10.0-50.0 % Monocytes (%) (Auto) 9.5 0.0-12.0 % Eosinophils (%) (Auto) 3.5 0.0-7.0 % Basophils (%) (Auto) 1.8 0.0-2.0 % Neutrophils # (Auto) 4.9 1.6-8.6 10 ^3/uL Lymphocytes # (Auto) 2.0 0.4-5.4 10 ^3/uL Monocytes # (Auto) 0.8 0-1.3 10 ^3/uL Eosinophils # (Auto) 0.3 0-0.8 10 ^3/uL Basophils # (Auto) 0.1 0-0.2 10 ^3/uL Nucleated Red Blood Cells 0.1 % Plasma/Serum Blood Alcohol 10.0 <10 mg/dL Assessment Assessment and plan: # SHANNAN likely hemodynamically mediated/VMN # Hypertensive heart disease # Alcohol dependence # Substance abuse disorder Plan: - SHANNAN, though baseline kidney function is not known - Pending urinalysis, urine sodium, creatinine, protein/ creatinine ratio - kidney ultrasound showed 6 cm perinephric fluid around the right kidney - Pending UDS and urine bacterial culture - Received 1 L NS - Avoid nephrotoxic medication - Monitor BMP Thank you so much for the opportunity to consult on your patient. Nephro team will follow the patient. In case of any questions or concerns please feel free to reach out. Plan discussed with Dr. Kay. The patient and caregiver team agreed to the plan. Plan discussed with: Patient, Other (RN) ADDENDUM ADDENDUM seen with resident in ER poor historian presented w/ vague leg pain labs including US and urine studies pending at time of eval needs UA IVF for now prerenal baseline renal function is unknown care time 55mins BARTOLO BATISTA RESIDENT Dec 07, 2024 14:30 SONG KAY MD Dec 07, 2024 21:03
--- NOTE | 2024-12-07 15:38 | DVHPN2 ---
Subjective Clinically stable. Sitting in the chair. No complaints. Changes from previous H/P or p: No Changes Eyes: No Pain, No Vision change, No Conjunctivae inflammation, No Eyelid inflammation, No Other, No Redness ENT: No Ear pain, No Ear discharge, No Nose pain, No Nose discharge, No Nose congestion, No Mouth pain, No Mouth swelling, No Throat pain, No Throat swelling, No Other Cardiovascular: No Chest Pain, No Palpitations, No Orthopnea, No Paroxysmal Noc. Dyspnea, No Edema, No Lt Headedness, No Other Respiratory: No Cough, No Dry, No Shortness of breath, No SOB with excertion, No Wheezing, No Hemoptysis, No Pleuritic Pain, No Sputum, No Other Gastrointestinal: No Nausea, No Vomiting, No Abdominal Pain, No Diarrhea, No Constipation, No Melena, No Hematochezia, No Other Genitourinary: No Dysuria, No Frequency, No Incontinence, No Hematuria, No Retention, No Other Musculoskeletal: No other, No neck pain, No shoulder pain, No arm pain, No back pain, No hand pain; leg pain (bilateral), foot pain (bilateral) Skin: No Rash, No Lesions, No Jaundice, No Bruising, No Other Objective Vitals Vital Signs Date Time Temp Pulse Resp B/P (MAP) Pulse Ox O2 Delivery O2 Flow Rate FiO2 12/07/24 13:00 98.0 66 16 104/59 (74) 96 98.0 12/07/24 11:03 Room Air Exam Alert awake oriented x3. Obese gentleman without distress. HEENT neck supple no JVD pupils equal round react to light. Heart regular rate rhythm S1-S2 without murmurs. Lungs fair air movement chest tube will expansion no rales wheezes. Abdomen obese soft nontender nondistended positive bowel sounds. Extremities no significant edema. Positive distal pedal pulses. Neurologically no focal deficits. Medications Current Medications Medications Dose Ordered Sig/Wai Route Start Time Stop Time Status Last Admin Dose Admin Acetaminophen/ Hydrocodone Bitart 1 tab Q4HP PRN PO 12/07/24 07:45 Ondansetron HCl 4 mg Q4HP PRN IV 12/07/24 07:45 Docusate Sodium 100 mg BIDPRN PRN PO 12/07/24 07:45 Acetaminophen 650 mg Q6HP PRN PO 12/07/24 07:45 Folic Acid 1 mg DAILY PO 12/07/24 10:00 12/07/24 10:54 1 MG Multivitamins/ Minerals 1 tab DAILY PO 12/07/24 10:00 12/07/24 10:54 1 TAB Thiamine HCl 100 mg DAILY PO 12/07/24 10:00 12/07/24 10:54 100 MG Laboratory Results Laboratory Tests 12/07/24 04:48 12/07/24 12:53 Chemistry Test 12/07/24 04:48 12/07/24 12:53 Calcium Level 9.1 mg/dL (8.7-10.4) 8.8 mg/dL (8.7-10.4) Albumin 4.0 g/dL (3.2-4.8) Total Protein 7.4 g/dL (5.7-8.2) LFT Test 12/07/24 12:53 Alanine Aminotransferase (ALT) 13 U/L (7-40) Alkaline Phosphatase 123 U/L (46-116) H Aspartate Amino Transferase (AST) 18 U/L (13-40) Total Bilirubin 0.9 mg/dL (0.2-1.0) Assessment/Plan Assessment/Plan # SHANNAN likely hemodynamically mediated/VMN # Hypertensive heart disease # Alcohol dependence # Substance abuse disorder Plan: - SHANNAN, though baseline kidney function is not known - Pending urinalysis, urine sodium, creatinine, protein/ creatinine ratio - kidney ultrasound showed 6 cm perinephric fluid around the right kidney - Pending UDS - Received 1 L NS - Avoid nephrotoxic medication - Monitor BMP I will continue IV fluids. Alcohol withdrawal protocol. Librium scheduled dose. We will check echo ruled out any alcohol-related cardiomyopathy. Check his B12 folate given his peripheral neuropathy complaints. Otherwise continue rest of supportive care and treatment. Follow the labs. Discussed with the patient regarding care plan. Plan discussed with: Patient My Orders Orders - MAGGIE ROSS MD Procedure Category Date Status Time Etoh Withdrawal PALMA 12/07/24 Verified Assessment 15:32 Etoh Withdrawal PALMA 12/07/24 Verified Assessment 15:32 Chlordiazepoxide Hcl PHA 12/07/24 Verified Capsule (Librium Ca 18:00 Thyroid Stimulating LAB 12/08/24 Verified Hormone 04:00 Vitamin B12 LAB 12/08/24 Verified 04:00 Folate (Folic Acid) LAB 12/08/24 Verified 04:00 Free T4 (Free LAB 12/08/24 Verified Thyroxine) 04:00 NS PHA 12/07/24 Verified 15:45 NS PHA 12/07/24 Verified 15:45 Date of Service: Dec 07, 2024 Billing Provider: MAGGIE ROSS MD Common Visit Codes: [id number] INP/OBS CARE(MOD) MAGGIE ROSS MD Dec 07, 2024 15:38
[2024-12-07] MEDS: SODIUM CHLORIDE 0.9% 500 ML IV ONE (16:05)
[2024-12-07] MEDS: SODIUM CHLORIDE 0.9% 1,000 ML IV SCH (16:05)
[2024-12-07 17:00] VITALS: BP 107/64; PULSE 78; RESP 22; TEMP 97.2; O2SAT 97
[2024-12-07 17:26] VITALS: BP 130/88; PULSE 63; RESP 16; TEMP 97.4; O2SAT 98
[2024-12-07 18:14] LABS: Protein, Urine 34.6 mg/dL (1-14)
[2024-12-07 18:16] LABS: Opiate Scree,Urine Neg (NEGATIVE)
[2024-12-07 18:22] LABS: Amphetamine Screen, Urine Pos (NEGATIVE); Barbiturate Scree,Urine Neg (NEGATIVE); Benzodiazephine Screen, Urine Neg (NEGATIVE); Cannabinoid Screen, Urine Neg (NEGATIVE); Cocaine Screen, Urine Neg (NEGATIVE); Phencyclidine Screen, Urine Neg (NEGATIVE)
[2024-12-07 20:00] VITALS: PULSE 74; RESP 17; O2SAT 97
[2024-12-07 21:00] VITALS: BP 109/72; PULSE 74; RESP 18; TEMP 98.2; O2SAT 97
[2024-12-07] MEDS: HYDROcodone-ACET 5/325MG TAB PO PRN (22:18)
[2024-12-07 23:38] LABS: Urine Protein, UAD TRACE (Negative)
[2024-12-08] VITALS (7 sets, daily range): BP systolic 96–112; BP diastolic 60–79; PULSE 66–75; RESP 17–20; TEMP 97–98; O2SAT 95–97
[2024-12-08 05:54] LABS: Hematocrit 37.7 % (41.0-53.0); Hemoglobin 12.7 g/dL (13.5-17.5); Mean Corpuscular Hemoglobin 31.0 pg (28.0-32.0); Mean Corpuscular Volume 92.2 fL (80.0-100.0); Nucleated Red Blood Cells % 0.1 %
[2024-12-08 06:05] LABS: Alanine Aminotransferase 12 U/L (7-40); Albumin 3.3 g/dL (3.2-4.8); Alkaline Phosphatase 102 U/L (46-116); Anion Gap 10 (5-15); BUN/Creatinine Ratio 10.1 (10.0-20.0); Carbon Dioxide 22 mmol/L (20-31); Glucose 88 mg/dL (74-106); Potassium 4.8 mmol/L (3.5-5.1); Sodium 140 mmol/L (136-145); Total Protein 6.2 g/dL (5.7-8.2)
[2024-12-08 06:06] LABS: Bilirubin, Total 0.6 mg/dL (0.2-1.0)
[2024-12-08 06:08] LABS: Blood Urea Nitrogen 24 mg/dL (9-23); Calcium 8.0 mg/dL (8.7-10.4); Chloride 108 mmol/L (98-107)
[2024-12-08 06:09] LABS: Free T4 (Free Thyroxine) 1.14 ng/dL (0.89-1.76)
[2024-12-08] MEDS: ACETAMINOPHEN 325 MG TAB PO PRN (11:00)
--- NOTE | 2024-12-08 11:21 | DVHPN2 ---
Progress Note Date Seen: Dec 08, 2024 Resident Creating Document: BARTOLO BATISTA RESIDENT Medical Necessity Reason Pt with a Central, PICC or Fol: No Subjective Review of Systems The patient was seen and examined on the bedside. He is alert oriented x3. Complaint of bilateral foot pain, no other active complaint. Objective vital signs Vital Sign Date Time Temp Pulse Resp B/P (MAP) Pulse Ox O2 Delivery O2 Flow Rate FiO2 12/08/24 09:00 97.0 68 17 96/60 (72) 97 97.0 12/07/24 20:00 Room Air* 0 21 Total Intake and Output 12/07/24 12/07/24 12/08/24 15:00 23:00 07:00 Intake Total 0 ml 800 ml Output Total 400 ml Balance 0 ml 400 ml medications Current Medications Medications Dose Ordered Sig/Wai Route Start Time Stop Time Status Last Admin Dose Admin Acetaminophen/ Hydrocodone Bitart 1 tab Q4HP PRN PO 12/07/24 07:45 12/07/24 22:18 1 TAB Ondansetron HCl 4 mg Q4HP PRN IV 12/07/24 07:45 Docusate Sodium 100 mg BIDPRN PRN PO 12/07/24 07:45 Acetaminophen 650 mg Q6HP PRN PO 12/07/24 07:45 12/08/24 11:00 650 MG Folic Acid 1 mg DAILY PO 12/07/24 10:00 12/08/24 10:58 1 MG Multivitamins/ Minerals 1 tab DAILY PO 12/07/24 10:00 12/08/24 10:57 1 TAB Thiamine HCl 100 mg DAILY PO 12/07/24 10:00 12/08/24 10:57 100 MG Chlordiazepoxide HCl 5 mg QID PO 12/07/24 18:00 12/08/24 10:57 5 MG Sodium Chloride 1,000 ml @ 100 mls/hr Q10H IV 12/07/24 15:45 12/08/24 03:54 100 MLS/HR Examination Physical examination: General Appearance: Alert, Oriented X3, Cooperative, No acute distress HEENT: Atraumatic, PERRLA, EOMI, Mucous membrane moist/pink Respiratory: Clear to auscultation, Normal air movement Cardiovascular: Regular rate, Normal S1, Normal S2, No murmurs, no chest wall tenderness Abdominal: Normal bowel sounds, Soft, No tenderness, No hepatospenomegaly, No masses Extremities: No clubbing, No cyanosis, No edema, Normal pulses, No tenderness/swelling Skin: No rashes, No breakdown, No significant lesion Neuro: Normal gait, Normal speech, Strength at 5/5 X4 ext, Normal tone, Sensation intact, Cranial nerves 3-12 NL, Reflexes 2+ Psych/Mental Status: Mental status NL, Mood NL laboratory and microbiology Laboratory Tests 12/08/24 05:29 Test 12/08/24 05:29 Range/Units Serum Glucose 88 74-106 mg/dL Labs and/or images reviewed: Labs reviewed by me, Image(s) reviewed by me Problem List/Assessment/Plan Problem List/Assessment/Plan Assessment and plan: # SHANNAN likely hemodynamically mediated/VMN # Hypertensive heart disease # Alcohol dependence # Methamphetamine abuse disorder Plan: - SHANNAN likely prerenal ,though baseline kidney function is unknown - FENa 0.6% - Improved kidney function and urine output - kidney ultrasound showed 6 cm perinephric fluid around the right kidney - U/A revealed normal study and UDS is positive for methamphetamine - Pending urine bacterial culture - Continue IV NS at 100 mL/hours - Avoid nephrotoxic medication - Monitor BMP Thank you so much for the opportunity to consult on your patient. Nephro team will follow the patient. In case of any questions or concerns please feel free to reach out. Plan discussed with Dr. Kay. The patient and caregiver team agreed to the plan. Plan discussed with: Patient, Other (RN) My Orders My Orders Orders - BARTOLO BATISTA Procedure Category Date Status Time Urine Bacterial HINA 12/07/24 In Process Culture 18:04 BARTOLO BATISTA Dec 08, 2024 11:21
--- NOTE | 2024-12-08 17:17 | DVHPN2 ---
Subjective Clinically stable. Kidney function is improving. Changes from previous H/P or p: No Changes Eyes: No Pain, No Vision change, No Conjunctivae inflammation, No Eyelid inflammation, No Other, No Redness ENT: No Ear pain, No Ear discharge, No Nose pain, No Nose discharge, No Nose congestion, No Mouth pain, No Mouth swelling, No Throat pain, No Throat swelling, No Other Cardiovascular: No Chest Pain, No Palpitations, No Orthopnea, No Paroxysmal Noc. Dyspnea, No Edema, No Lt Headedness, No Other Respiratory: No Cough, No Dry, No Shortness of breath, No SOB with excertion, No Wheezing, No Hemoptysis, No Pleuritic Pain, No Sputum, No Other Gastrointestinal: No Nausea, No Vomiting, No Abdominal Pain, No Diarrhea, No Constipation, No Melena, No Hematochezia, No Other Genitourinary: No Dysuria, No Frequency, No Incontinence, No Hematuria, No Retention, No Other Musculoskeletal: No other, No neck pain, No shoulder pain, No arm pain, No back pain, No hand pain; leg pain (bilateral), foot pain (bilateral) Skin: No Rash, No Lesions, No Jaundice, No Bruising, No Other Objective Vitals Vital Signs Date Time Temp Pulse Resp B/P (MAP) Pulse Ox O2 Delivery O2 Flow Rate FiO2 12/08/24 13:00 97.7 67 17 112/79 (90) 95 97.7 12/07/24 20:00 Room Air* 0 21 Intake/Output Intake and Output 12/08/24 07:00 Intake Total 800 ml Output Total 400 ml Balance 400 ml Intake Oral 800 ml Output Urine Total 400 ml Exam Alert awake oriented x3. Obese gentleman without distress. HEENT neck supple no JVD pupils equal round react to light. Heart regular rate rhythm S1-S2 without murmurs. Lungs fair air movement chest tube will expansion no rales wheezes. Abdomen obese soft nontender nondistended positive bowel sounds. Extremities no significant edema. Positive distal pedal pulses. Neurologically no focal deficits. Medications Current Medications Medications Dose Ordered Sig/Wai Route Start Time Stop Time Status Last Admin Dose Admin Acetaminophen/ Hydrocodone Bitart 1 tab Q4HP PRN PO 12/07/24 07:45 12/07/24 22:18 1 TAB Ondansetron HCl 4 mg Q4HP PRN IV 12/07/24 07:45 Docusate Sodium 100 mg BIDPRN PRN PO 12/07/24 07:45 Acetaminophen 650 mg Q6HP PRN PO 12/07/24 07:45 12/08/24 11:00 650 MG Folic Acid 1 mg DAILY PO 12/07/24 10:00 12/08/24 10:58 1 MG Multivitamins/ Minerals 1 tab DAILY PO 12/07/24 10:00 12/08/24 10:57 1 TAB Thiamine HCl 100 mg DAILY PO 12/07/24 10:00 12/08/24 10:57 100 MG Chlordiazepoxide HCl 5 mg QID PO 12/07/24 18:00 12/08/24 10:57 5 MG Sodium Chloride 1,000 ml @ 100 mls/hr Q10H IV 12/07/24 15:45 12/08/24 15:57 100 MLS/HR Laboratory Results Laboratory Tests 12/08/24 05:29 Chemistry Test 12/08/24 05:29 Albumin 3.3 g/dL (3.2-4.8) Calcium Level 8.0 mg/dL (8.7-10.4) L Total Protein 6.2 g/dL (5.7-8.2) LFT Test 12/08/24 05:29 Alanine Aminotransferase (ALT) 12 U/L (7-40) Alkaline Phosphatase 102 U/L (46-116) Aspartate Amino Transferase (AST) 20 U/L (13-40) Total Bilirubin 0.6 mg/dL (0.2-1.0) HgA1c, TSH Test 12/08/24 05:29 Thyroid Stimulating Hormone (TSH) 3.64 uIU/mL (0.55-4.78) Urinalysis Test 12/07/24 00:00 12/07/24 09:38 12/07/24 10:14 Urine Protein/Creatinine Ratio 0.27 Urine Total Protein 34.6 mg/dL (1-14) H Urine Creatinine 128.64 mg/dL (30.0-125.0) H Urine Sodium 42 mmol/L (40-220) Urine Color Yellow (Yellow) Urine Clarity Clear (Clear) Urine pH 5.5 (5.0-9.0) Urine Specific [place] 1.013 (1.001-1.035) Urine Protein Trace (Negative) H Urine Ketones Negative (Negative) Urine Blood Negative /uL (Negative) Urine Nitrite Negative (Negative) Urine Bilirubin Negative (Negative) Urine Urobilinogen Normal mg/dL (Negative) Urine Leukocyte Esterase Negative /uL (Negative) Urine RBC None seen /hpf (0 - 3) Urine Microscopic WBC 1 /HPF (0-3) Urine Squamous Epithelial Cells Few /hpf (<5) Urine Bacteria None seen /hpf (None Seen) Urine Glucose Normal mg/dL (Normal) Assessment/Plan Assessment/Plan # SHANNAN likely hemodynamically mediated/VMN # Hypertensive heart disease # Alcohol dependence # Substance abuse disorder Plan: - SHANNAN, though baseline kidney function is not known - Pending urinalysis, urine sodium, creatinine, protein/ creatinine ratio - kidney ultrasound showed 6 cm perinephric fluid around the right kidney - Pending UDS - Received 1 L NS - Avoid nephrotoxic medication - Monitor BMP Continue IV fluids and monitor kidney function. I will cut down his Librium to p.r.n.. Await social Service consultation. Encouraged activity ambulation. Further clinical management per clinical course and recommendations from the consultants. Discussed with the patient regarding care plan. Plan discussed with: Patient, Other Date of Service: Dec 08, 2024 Billing Provider: MAGGIE ROSS MD Common Visit Codes: [id number] INP/OBS CARE(MOD) MAGGIE ROSS MD Dec 08, 2024 17:17
[2024-12-09 05:00] VITALS: BP 121/86; PULSE 78; RESP 20; TEMP 97.5; O2SAT 100
[2024-12-09 05:57] LABS: Hematocrit 37.6 % (41.0-53.0); Hemoglobin 12.7 g/dL (13.5-17.5); Mean Corpuscular Hemoglobin 31.9 pg (28.0-32.0); Mean Corpuscular Volume 94.3 fL (80.0-100.0); Nucleated Red Blood Cells % 0.1 %
[2024-12-09 08:47] LABS: Anion Gap 7 (5-15); Carbon Dioxide 21 mmol/L (20-31)
[2024-12-09 08:52] LABS: Calcium 7.8 mg/dL (8.7-10.4); Chloride 111 mmol/L (98-107); Potassium 4.8 mmol/L (3.5-5.1); Sodium 139 mmol/L (136-145)
[2024-12-09 08:54] LABS: Glucose 85 mg/dL (74-106)
[2024-12-09 08:55] LABS: BUN/Creatinine Ratio 11.3 (10.0-20.0); Blood Urea Nitrogen 18 mg/dL (9-23)
[2024-12-09 09:00] VITALS: BP 108/79; PULSE 77; RESP 18; TEMP 97.3; O2SAT 96
--- NOTE | 2024-12-09 10:14 | DVHPN2 ---
Subjective The patient is seen and examined at bedside. No complaint today. Reviewed: Care Plan, H&P, Labs, Medications, Previous Orders, Radiology Changes from previous H/P or p: No Changes Eyes: No Pain, No Vision change, No Conjunctivae inflammation, No Eyelid inflammation, No Other, No Redness ENT: No Ear pain, No Ear discharge, No Nose pain, No Nose discharge, No Nose congestion, No Mouth pain, No Mouth swelling, No Throat pain, No Throat swelling, No Other Cardiovascular: No Chest Pain, No Palpitations, No Orthopnea, No Paroxysmal Noc. Dyspnea, No Edema, No Lt Headedness, No Other Respiratory: No Cough, No Dry, No Shortness of breath, No SOB with excertion, No Wheezing, No Hemoptysis, No Pleuritic Pain, No Sputum, No Other Gastrointestinal: No Nausea, No Vomiting, No Abdominal Pain, No Diarrhea, No Constipation, No Melena, No Hematochezia, No Other Genitourinary: No Dysuria, No Frequency, No Incontinence, No Hematuria, No Retention, No Other Musculoskeletal: No other, No neck pain, No shoulder pain, No arm pain, No back pain, No hand pain; leg pain (bilateral), foot pain (bilateral) Skin: No Rash, No Lesions, No Jaundice, No Bruising, No Other Objective Vitals Vital Signs Date Time Temp Pulse Resp B/P (MAP) Pulse Ox O2 Delivery O2 Flow Rate FiO2 12/09/24 09:00 97.3 77 18 108/79 (89) 96 97.3 12/08/24 20:00 Room Air* 0 21 Intake/Output Intake and Output 12/09/24 07:00 Intake Total 1150 ml Output Total 1300 ml Balance -150 ml Intake Oral 450 ml IV Total 700 ml Output Urine Total 1300 ml General Appearance: Alert, No acute distress HEENT: Atraumatic, PERRLA, EOMI, Mucous membr. moist/pink Neck: Supple Lungs: Clear to auscultation, Normal air movement Cardiovascular: Regular rate, Normal S1, Normal S2, No murmurs, Gallops, Rubs Abdomen: Normal bowel sounds, Soft, No tenderness Neuro: Cranial nerves 3-12 NL Psych/Mental Status: Mental status NL Medications Current Medications Medications Dose Ordered Sig/Wai Route Start Time Stop Time Status Last Admin Dose Admin Acetaminophen/ Hydrocodone Bitart 1 tab Q4HP PRN PO 12/07/24 07:45 12/08/24 20:26 1 TAB Ondansetron HCl 4 mg Q4HP PRN IV 12/07/24 07:45 Docusate Sodium 100 mg BIDPRN PRN PO 12/07/24 07:45 Acetaminophen 650 mg Q6HP PRN PO 12/07/24 07:45 12/08/24 11:00 650 MG Folic Acid 1 mg DAILY PO 12/07/24 10:00 12/08/24 10:58 1 MG Multivitamins/ Minerals 1 tab DAILY PO 12/07/24 10:00 12/08/24 10:57 1 TAB Thiamine HCl 100 mg DAILY PO 12/07/24 10:00 12/08/24 10:57 100 MG Sodium Chloride 1,000 ml @ 100 mls/hr Q10H IV 12/07/24 15:45 12/09/24 02:07 100 MLS/HR Chlordiazepoxide HCl 5 mg QID PRN PO 12/08/24 17:30 Laboratory Results Laboratory Tests 12/09/24 05:30 12/09/24 08:17 Chemistry Test 12/09/24 08:17 Calcium Level 7.8 mg/dL (8.7-10.4) L Urinalysis Test 12/07/24 00:00 12/07/24 09:38 12/07/24 10:14 Urine Protein/Creatinine Ratio 0.27 Urine Total Protein 34.6 mg/dL (1-14) H Urine Creatinine 128.64 mg/dL (30.0-125.0) H Urine Sodium 42 mmol/L (40-220) Urine Color Yellow (Yellow) Urine Clarity Clear (Clear) Urine pH 5.5 (5.0-9.0) Urine Specific [place] 1.013 (1.001-1.035) Urine Protein Trace (Negative) H Urine Ketones Negative (Negative) Urine Blood Negative /uL (Negative) Urine Nitrite Negative (Negative) Urine Bilirubin Negative (Negative) Urine Urobilinogen Normal mg/dL (Negative) Urine Leukocyte Esterase Negative /uL (Negative) Urine RBC None seen /hpf (0 - 3) Urine Microscopic WBC 1 /HPF (0-3) Urine Squamous Epithelial Cells Few /hpf (<5) Urine Bacteria None seen /hpf (None Seen) Urine Glucose Normal mg/dL (Normal) Microbiology Microbiology Date/Time Source Procedure Growth Status 12/07/24 10:14 Voided Urine Urine Culture - Preliminary Resulted Labs and/or images reviewed: Labs reviewed by me Assessment/Plan Assessment/Plan # SHANNAN likely hemodynamically mediated/VMN # Hypertensive heart disease # Alcohol dependence # Substance abuse disorder # bilateral lower extremity edema Plan: - SHANNAN, though baseline kidney function is not known - Pending urinalysis, urine sodium, creatinine, protein/ creatinine ratio - kidney ultrasound showed 6 cm perinephric fluid around the right kidney - UDS is negative - Received 1 L NS - Avoid nephrotoxic medication - Monitor BMP Continue IV fluids and monitor kidney function. - continuing Librium to p.r.n.. Await social Service consultation regarding homelessness. Encouraged activity ambulation. -Will give low-dose Lasix 20 mg IV b.i.d. because his extremity is increase edema in pain so is harder for him to walk today. This medical document was created using an electronic medical record system with [employer] direct computerized dictation system. Although this document has been carefully reviewed, there may still be some phonetic and typographical errors. These areas are purely typographical due to imperfections of the software programs, and do not reflect any compromise in the patient's medical care. Plan discussed with: Patient Date of Service: Dec 09, 2024 Billing Provider: MINERVA PATEL MD Common Visit Codes: [id number] INP/OBS CARE(HIGH) MINERVA PATEL MD Dec 09, 2024 10:14
--- NOTE | 2024-12-09 10:21 | DVHPN2 ---
Progress Note Date Seen: Dec 09, 2024 Resident Creating Document: BARTOLO BATISTA RESIDENT Medical Necessity Reason Pt with a Central, PICC or Fol: No Subjective Review of Systems The patient was seen and examined on the bedside. He is alert oriented x3. Complaint of bilateral foot pain, no other active complaint. Objective vital signs Vital Sign Date Time Temp Pulse Resp B/P (MAP) Pulse Ox O2 Delivery O2 Flow Rate FiO2 12/09/24 09:00 97.3 77 18 108/79 (89) 96 97.3 12/08/24 20:00 Room Air* 0 21 Total Intake and Output 12/08/24 12/08/24 12/09/24 15:00 23:00 07:00 Intake Total 700 ml 450 ml Output Total 900 ml 400 ml Balance -200 ml 50 ml medications Current Medications Medications Dose Ordered Sig/Wai Route Start Time Stop Time Status Last Admin Dose Admin Acetaminophen/ Hydrocodone Bitart 1 tab Q4HP PRN PO 12/07/24 07:45 12/08/24 20:26 1 TAB Ondansetron HCl 4 mg Q4HP PRN IV 12/07/24 07:45 Docusate Sodium 100 mg BIDPRN PRN PO 12/07/24 07:45 Acetaminophen 650 mg Q6HP PRN PO 12/07/24 07:45 12/08/24 11:00 650 MG Folic Acid 1 mg DAILY PO 12/07/24 10:00 12/08/24 10:58 1 MG Multivitamins/ Minerals 1 tab DAILY PO 12/07/24 10:00 12/08/24 10:57 1 TAB Thiamine HCl 100 mg DAILY PO 12/07/24 10:00 12/08/24 10:57 100 MG Sodium Chloride 1,000 ml @ 100 mls/hr Q10H IV 12/07/24 15:45 12/09/24 02:07 100 MLS/HR Chlordiazepoxide HCl 5 mg QID PRN PO 12/08/24 17:30 Examination Physical examination: General Appearance: Alert, Oriented X3, Cooperative, No acute distress HEENT: Atraumatic, PERRLA, EOMI, Mucous membrane moist/pink Respiratory: Clear to auscultation, Normal air movement Cardiovascular: Regular rate, Normal S1, Normal S2, No murmurs, no chest wall tenderness Abdominal: Normal bowel sounds, Soft, No tenderness, No hepatospenomegaly, No masses Extremities: No clubbing, No cyanosis, No edema, Normal pulses, No tenderness/swelling Skin: No rashes, No breakdown, No significant lesion Neuro: Normal gait, Normal speech, Strength at 5/5 X4 ext, Normal tone, Sensation intact, Cranial nerves 3-12 NL, Reflexes 2+ Psych/Mental Status: Mental status NL, Mood NL laboratory and microbiology Laboratory Tests 12/09/24 08:17 12/09/24 05:30 Test 12/09/24 08:17 Range/Units Serum Glucose 85 74-106 mg/dL Microbiology Date/Time Source Procedure Growth Status 12/07/24 10:14 Voided Urine Urine Culture - Preliminary Resulted Labs and/or images reviewed: Labs reviewed by me, Image(s) reviewed by me Problem List/Assessment/Plan Problem List/Assessment/Plan Assessment and plan: # SHANNAN likely hemodynamically mediated/VMN # Hypertensive heart disease # Alcohol dependence # Methamphetamine abuse disorder Plan: - SHANNAN likely prerenal ,though baseline kidney function is unknown - FENa 0.6% - Improved kidney function and urine output - kidney ultrasound showed 6 cm perinephric fluid around the right kidney - U/A revealed normal study and UDS is positive for methamphetamine - Avoid nephrotoxic medication - Monitor BMP - we will sign off now and patient is stable from Nephrology standpoint Thank you so much for the opportunity to consult on your patient. In case of any questions or concerns please feel free to reach out. Plan discussed with Dr. Kay. The patient and caregiver team agreed to the plan. Plan discussed with: Patient, Other (RN) BARTOLO BATISTA RESIDENT Dec 09, 2024 10:21
[2024-12-09 13:00] VITALS: BP 90/62; PULSE 58; RESP 18; TEMP 97.5; O2SAT 97
[2024-12-09 17:00] VITALS: BP_SYST 141; BP_SYST 151; BP_DIAS 79; BP_DIAS 94; PULSE 60; PULSE 96; RESP 17; RESP 18; TEMP 97.5; TEMP 98; O2SAT 92; O2SAT 98
[2024-12-09] MEDS: FUROSEMIDE 20 MG/2 ML VIAL IV SCH (17:20)
[2024-12-09] MEDS: DOCUSATE SOD 100 MG CAP PO PRN (17:40)
[2024-12-09 21:00] VITALS: BP 100/76; PULSE 60; RESP 20; TEMP 97.7; O2SAT 97
[2024-12-10 00:47] VITALS: BP 131/91; PULSE 65; RESP 20; TEMP 97.9; O2SAT 97
[2024-12-10 05:00] VITALS: BP 107/60; PULSE 69; RESP 20; TEMP 98.6; O2SAT 96
[2024-12-10 05:56] LABS: Hematocrit 37.4 % (41.0-53.0); Hemoglobin 12.8 g/dL (13.5-17.5); Mean Corpuscular Hemoglobin 31.7 pg (28.0-32.0); Mean Corpuscular Volume 92.8 fL (80.0-100.0); Nucleated Red Blood Cells % 0.0 %
[2024-12-10 05:59] LABS: Anion Gap 8 (5-15); Carbon Dioxide 24 mmol/L (20-31); Potassium 4.6 mmol/L (3.5-5.1); Sodium 139 mmol/L (136-145)
[2024-12-10 06:05] LABS: BUN/Creatinine Ratio 10.2 (10.0-20.0); Blood Urea Nitrogen 18 mg/dL (9-23); Calcium 8.0 mg/dL (8.7-10.4); Chloride 107 mmol/L (98-107); Glucose 105 mg/dL (74-106)
[2024-12-10 08:00] VITALS: PULSE 63; RESP 18; O2SAT 96
--- NOTE | 2024-12-10 08:51 | DVH ---
CLINICAL HISTORY: rule out dvt TECHNIQUE: Color and duplex doppler imagine of the bilateral lower extremity veins was performed. Ves richar compression and augmentation if possible was also performed. COMPARISON: CV VENOUS DOPPLER LOW EXT LT on DOS: 11/29/24, US BILAT LOWER DVT on DOS: 11/21/24, US BILAT LOWER DVT on DOS: 06/22/22, BI LOWER DVT on DOS: 10/31/21, BILAT LOW EXT ART DUPLEX on DOS: 10/31/21 FINDINGS: Right Lower Extremity: Right common femoral vein: Normal compressibility and flow. Right superficial femoral vein: Normal compressibility and flow. Right popliteal vein: Normal compressibility and flow. Proximal calf veins demonstrate flow. Left Lower Extremity: Left common femoral vein: Normal compressibility and flow. Left superficial femoral vein: Normal compressibility and flow. Left popliteal vein: Normal compressibility and flow. Proximal calf veins demonstrate flow. IMPRESSION: NO SONOGRAPHIC EVIDENCE FOR DEEP VENOUS THROMBOSIS IN THE BILATERAL LOWER EXTREMITY VEINS.
[2024-12-10 09:00] VITALS: BP 95/71; PULSE 93; RESP 16; TEMP 98.4; O2SAT 93
[2024-12-10] MEDS ORDERED: AMLO1TAB22 PO (12:33)
[2024-12-10] MEDS ORDERED: FURO1TAB33 PO (12:33)
[2024-12-10] MEDS ORDERED: ATOR10TA52 PO (12:33)
--- NOTE | 2024-12-10 12:34 | DVHDS2 ---
Discharge Summary Date of Admission Dec 07, 2024 at 07:43 Date of Discharge: Dec 10, 2024 Admitting Diagnosis # SHANNAN likely hemodynamically mediated/VMN # Hypertensive heart disease # Alcohol dependence # Substance abuse disorder, patient use methamphetamine Labs/Diagnostic Data: Laboratory Results Test 12/10/24 05:18 12/08/24 05:29 12/07/24 10:14 12/07/24 09:38 White Blood Count 5.0 10^3/uL (4.4-10.8) Red Blood Count 4.03 10^6/uL (4.5-5.90) Hemoglobin 12.8 g/dL (13.5-17.5) Hematocrit 37.4 % (41.0-53.0) Mean Corpuscular Volume 92.8 fL (80.0-100.0) Mean Corpuscular Hemoglobin 31.7 pg (28.0-32.0) Mean Corpuscular Hemoglobin Concent 34.1 g/dL (32.0-36.0) Red Cell Distribution Width 15.7 % (11.8-14.3) Platelet Count 213 10^3/uL (140-450) Mean Platelet Volume 7.5 fL (6.9-10.8) Neutrophils (%) (Auto) 51.8 % (37.0-80.0) Lymphocytes (%) (Auto) 29.4 % (10.0-50.0) Monocytes (%) (Auto) 9.9 % (0.0-12.0) Eosinophils (%) (Auto) 7.7 % (0.0-7.0) Basophils (%) (Auto) 1.2 % (0.0-2.0) Neutrophils # (Auto) 2.6 10 ^3/uL (1.6-8.6) Lymphocytes # (Auto) 1.5 10 ^3/uL (0.4-5.4) Monocytes # (Auto) 0.5 10 ^3/uL (0-1.3) Eosinophils # (Auto) 0.4 10 ^3/uL (0-0.8) Basophils # (Auto) 0.1 10 ^3/uL (0-0.2) Nucleated Red Blood Cells 0.0 % Sodium Level 139 mmol/L (136-145) Potassium Level 4.6 mmol/L (3.5-5.1) Chloride Level 107 mmol/L (98-107) Carbon Dioxide Level 24 mmol/L (20-31) Anion Gap 8 (5-15) Blood Urea Nitrogen 18 mg/dL (9-23) Creatinine 1.77 mg/dL (0.700-1.30) Glomerular Filtration Rate Calc 43 mL/min (>90) BUN/Creatinine Ratio 10.2 (10.0-20.0) Serum Glucose 105 mg/dL (74-106) Calcium Level 8.0 mg/dL (8.7-10.4) Total Bilirubin 0.6 mg/dL (0.2-1.0) Aspartate Amino Transferase (AST) 20 U/L (13-40) Alanine Aminotransferase (ALT) 12 U/L (7-40) Alkaline Phosphatase 102 U/L (46-116) Total Protein 6.2 g/dL (5.7-8.2) Albumin 3.3 g/dL (3.2-4.8) Vitamin B12 Level 297 pg/mL (211-911) Folic Acid 18.04 ng/mL (>5.38) Thyroid Stimulating Hormone (TSH) 3.64 uIU/mL (0.55-4.78) Free Thyroxine (T4) Calculated 1.14 ng/dL (0.89-1.76) Urine Color Yellow (Yellow) Urine Clarity Clear (Clear) Urine pH 5.5 (5.0-9.0) Urine Specific [place] 1.013 (1.001-1.035) Urine Protein Trace (Negative) Urine Ketones Negative (Negative) Urine Blood Negative /uL (Negative) Urine Nitrite Negative (Negative) Urine Bilirubin Negative (Negative) Urine Urobilinogen Normal mg/dL (Negative) Urine Leukocyte Esterase Negative /uL (Negative) Urine RBC None seen /hpf (0 - 3) Urine Microscopic WBC 1 /HPF (0-3) Urine Squamous Epithelial Cells Few /hpf (<5) Urine Bacteria None seen /hpf (None Seen) Urine Glucose Normal mg/dL (Normal) Urine Opiates Screen Neg (NEGATIVE) Urine Fentanyl Screen Neg (NEGATIVE) Urine Barbiturates Screen Neg (NEGATIVE) Urine Phencyclidine Screen Neg (NEGATIVE) Urine Amphetamines Screen Pos (NEGATIVE) Urine Benzodiazepines Screen Neg (NEGATIVE) Urine Cocaine Screen Neg (NEGATIVE) Urine Cannabinoids Screen Neg (NEGATIVE) Urine Creatinine 128.64 mg/dL (30.0-125.0) Urine Sodium 42 mmol/L (40-220) Test 12/07/24 04:48 12/07/24 00:00 Plasma/Serum Blood Alcohol 10.0 mg/dL (<10) Urine Protein/Creatinine Ratio 0.27 Urine Total Protein 34.6 mg/dL (1-14) Other Laboratory Tests 12/10/24 05:18 Brief Hx & Hospital Course: This is a 59 years old male with past medical history hypertension, hyperlipidemia come to emergency department because bilateral foot and leg pain. Patient recently was discharged from [facility] with the same complaint. Patient said he had pain on his feet for two weeks and he is having a hard time to walk due to the pain. The patient also admitted that he just used methamphetamine a day before come into this hospital. He also admitted that he drinks about a pint of liquor prior to come to the hospital. The patient also said he is homeless. The patient was given IV fluid. His acute renal failure resolved. The patient's echo showed: Technically good study. Sinus rhythm. Normal chamber sizes. Valves are normal. EF of 55% with normal RV function. There is what appears to be an in atrial and a ventricular lead in the right ventricle and right atrium respectively. No pericardial effusion masses or vegetation. Mild TR. The patient also was given Lasix for his bilateral lower extremity edema which improved. The patient was advised to compliant with his medical treatment. The patient also seen by social work nurse for resources of homelessness. Advised the patient to stop using methamphetamine and drinking in length more than 15-20 minutes. Follow up with primary care physician 1-2 weeks. Physical exam: HEENT: Normocephalic atraumatic pupils equal react to light and accommodation. Extraocular muscles intact, conjunctiva pink, oropharynx moist, no thrush, no exudate. Lymphatic: No lymphadenopathy Cardiovascular exam: S1, S2 was heard. No murmurs, rubs, gallops Lung: Clear on auscultation bilaterally, no wheeze, rale, rhonchi. GI: Abdominal soft, nondistended, nontenderness, positive bowel sounds. Extremity: No crepitus, cyanosis, edema. Pedal pulses present bilateral. Full range of motion. Skin: Normal turgor, no rash. Psych: Alert, oriented x3. Neurology: No focal deficits, cranial nerve II to XII grossly intact. This medical document was created using an electronic medical record system with [employer] direct computerized dictation system. Although this document has been carefully reviewed, there may still be some phonetic and typographical errors. These areas are purely typographical due to imperfections of the software programs, and do not reflect any compromise in the patient's medical care. Condition at Discharge: Stable Final Diagnosis/Problems List # SHANNAN likely hemodynamically mediated/VMN # Hypertensive heart disease # Alcohol dependence # Substance abuse disorder, patient use metamphetamine. # bilateral lower extremity edema # CHF, unknown type. Discharge Disposition: Home Discharge Instruct/Medications Diet: Cardiac 2g Na,low cholest Activity: No Restrictions, As Tolerated Follow Up/Referral: PCP 1-2 weeks Medications: Resume home med DC nifedipine Lasix 20mg PO daily. Scheduled Amlodipine Besylate (Amlodipine Besylate), 1 TAB PO DAILY Atorvastatin Calcium (Atorvastatin Calcium), 1 TAB PO HS Furosemide (Lasix), 1 TAB PO DAILY Discontinued Medications Acetaminophen (Acetaminophen), 500 MG PO Q4HPRN Nifedipine (Nifedipine), 1 CAP PO DAILY, (Reported) Discharge Statement: "Patient was advised to return to the ER or call 911 if any headaches, dizziness, shortness of breath, chest pain, abdominal pain, bleeding, fevers, or worsening of medical condition. Patient was counseled about treatment plan, medications, possible side effects, patientverbalized understanding. All questions were answered to the best of my ability. This discharge took greater then 30 minutes in planning, reviewing documentation, counseling the patient, and discussing with other team members." ASSESSMENT ASSESSMENT Assessment CHF ARF Date of Service: Dec 10, 2024 Billing Provider: MINERVA PATEL MD Common Visit Codes: [id number] DISCH DAY >30min MINERVA PATEL MD Dec 10, 2024 12:34
[2024-12-10 13:00] VITALS: BP 120/87; PULSE 65; RESP 18; TEMP 98.3; O2SAT 96
--- NOTE | 2024-12-10 13:04 | DVHSR ---
APPROVED REPORT EXAM: Two-dimensional and M-mode echocardiogram with Doppler and color Doppler. Blood Pressure: 104/69 mmHg INDICATION Cardiomyopathy/ heart failure RISK FACTORS Height: 68, Weight: 262 DIMENSIONS LVDd (3.8-5.7cm)LA (2D)3.7 (1.9-4.0cm)Aortic Root3.7 (2.0-3.7cm) LVDs (2.5-4.0cm)LA (MM) (1.9-4.0cm)Aortic Cusp Exc2.0 (1.5-2.0cm) EF (%) 61.0 (55-70%)Rt. Atrium3.5 (1.9-4.0cm)Asc. Aorta cm Mitral Valve MitralMitral Stenosis E wave0.85m/sMV Mean GR.mmHg A wave0.88m/sMV Peak GR.57mmHg E/A ratio1.02D MVAcm2 DECEL [id number] 1/2 [id number] IVRTmsDop MVA1.84cm2 Aortic Valve Aortic ValveAortic Stenosis V11.25m/Olga Mean GR.5mmHg V21.51m/Olga Peak GR.9mmHg LVOT Diameter2.1 (1.8-2.4cm)Doppler AVA2.87cm2 Pulmonic Valve V21.06m/s Tricuspid Valve TR Velocity2.59m/s [id number] Conclusion Technically good study. Sinus rhythm. Normal chamber sizes. Valves are normal. EF of 55% with normal RV function. There is what appears to be an in atrial and a ventricular lead in the right ventricle and right atri um respectively. No pericardial effusion masses or vegetation. Mild TR.
[2024-12-10 14:48] VITALS: BP 120/87; PULSE 65; RESP 18; TEMP 98.3; O2SAT 96
== END 2024-12-10 16:05 | disposition home or self-care (01) | DRG 469 ==
LOC: EDBD 03:58 → ER 04:05 → OVERFLOW 07:43 → EAST 17:18
PROVIDERS: ADMIT Internal Medicine; ATTEND Internal Medicine
DX: N17.0 Acute kidney failure with tubular necrosis (principal); I11.0 Hypertensive heart disease with heart failure; I50.9 Heart failure, unspecified; Z59.00 Homelessness unspecified; E78.5 Hyperlipidemia, unspecified; F10.20 Alcohol dependence, uncomplicated; F15.10 Other stimulant abuse, uncomplicated; F10.239 Alcohol dependence with withdrawal, unspecified; G62.9 Polyneuropathy, unspecified; Z86.73 Personal history of transient ischemic attack (TIA), and cerebral infarction without residual deficits
CPT/HCPCS: 36415; 71045; 76775; 80048; 80053; 80307; 80320; 81001; 82570; 82607; 82746; 84156; 84300; 84439; 84443; 85025; 87086; 93306; 93970; 96360; G0378